=== PATIENT | male | born 2005 | race African-American/Black ===

== ENCOUNTER 2024-01-17 19:25 | Emergency (ER) | payer BC, SELFPAY ==
[2024-01-17 19:27] VITALS: BP 144/77; PULSE 99; RESP 20; TEMP 37.2; O2SAT 100
--- NOTE | 2024-01-17 22:39 | ED.SKABFB ---
HPI - Skin/Abscess/Foreign Bdy General Chief complaint: Skin/Abscess/Foreign Body Stated complaint: black head on my side that is causing pain Time Seen by Provider: 01/17/24 20:44 Source: patient Mode of arrival: ambulatory Limitations: no limitations History of Present Illness HPI narrative: This is a 18-year-old male, with no significant past medical history, presents to the emergency department complaining of a painful lesion the posterior aspect of his right leg. The patient states he had appeared to be a blackhead that developed approximately 1 week ago has gradually grown in size and become more painful. He states he has attempted to self treat with hot compresses without improvement. He has no other complaints at this time Related Data Allergies Allergy/AdvReac Type Severity Reaction Status Date / Time No Known Allergies Allergy Verified 01/17/24 23:03 Review of Systems Review of Systems: All systems reviewed & are unremarkable except as noted in HPI and below PMFSH Past Medical History Medical History No significant past medical history Surgical History Surgical History No significant past surgical history Social History Social History Smoking status: Never smoker Alcohol intake: current Substance use: never Exam Narrative: GENERAL: Well-developed, well-nourished, and in no acute distress. HEAD: Normocephalic, atraumatic. EYES: PERRLA and EOMI. CHEST: Clear to auscultation. No respiratory distress. No wheezes rales or rhonchi HEART: Regular rate and rhythm. No murmur heard. Normal peripheral pulses. EXTREMITIES: there is a tender fluctuant mass at the posterior aspect of the right distal 3rd thigh measuring approximately 7 cm in diameter with overlying erythema and induration. Normal range of motion of all extremities. No edema. SKIN: Warm, dry, no rash. NEURO: Alert and oriented x3. No focal deficit. Moving all 4 limbs spontaneously PSYCH: Normal mood and affect. Course Course Emergency Course: 22:40 - Incision drainage performed upon the patient's right leg with abscess and what appears to be a cystic mass removed. Patient tolerated procedure well. Please see procedure note. Will discharge with oral antibiotics and recommendation for primary care follow-up. I discussed the findings and recommendations with The patient. Discussed return and emergency precautions including signs/symptoms of septic arthritis and neurovascular compromise. The patient voiced understanding and agreement with the plan. All questions answered to his satisfaction. Vital Signs Vital signs: Vital Signs Temperature 99.0 F 01/17/24 19:27 Pulse Rate 99 01/17/24 19:27 Respiratory Rate 20 01/17/24 19:27 Blood Pressure 144/77 H 01/17/24 19:27 Pulse Oximetry 100 01/17/24 19:27 Oxygen Delivery Room Air 01/17/24 19:27 Temperature 98.6 F 01/17/24 23:02 Pulse Rate 69 01/17/24 23:02 Respiratory Rate 14 01/17/24 23:02 Blood Pressure 142/86 H 01/17/24 23:02 Pulse Oximetry 97 01/17/24 23:02 Oxygen Delivery Room Air 01/17/24 19:27 Procedures Abscess I/D lower extremity: Date of Incision: 01/17/24 Time of Incision: 22:29 Side (if applicable): right Local Anesthetic: lidocaine 1% and with epi Amount of anesthesia used (mL): 15 Technique: incised with #11 blade Amount of fluid expressed (mL): 5 Irrigation: Yes Packing used?: iodoform I&D Results: Pus, Blood and Other (Cyst) Complications: other (None) MDM - Skin/Abscess/Foreign Bdy MDM Narrative Medical decision making narrative: Plan: Pain control, incision and drainage, reassess Differential Diagnosis Differential diagnosis: Likely abscess of skin or subcutaneous tissue, cellulitis and other ( cyst, other) Discharge Plan Discharge Clinical Impression: Abscess of skin or subcutaneous tissue Patient Disposition: Home, Self-Care Condition: Stable Instructions: Antibiotic Form, Abscess (ED) Additional Instructions: You were seen in the emergency department. An abscess and associated cyst was drained from the right leg. I recommend a course of antibiotics and follow-up with your primary care doctor in 3-5 days. If you develop fevers with severe rapidly spreading redness, the leg appears blue/cold, or if you have other emergent concerns for life, limb, or eyesight, return to the emergency department. Patient Language: Uz[place] Prescriptions: New sulfamethoxazole-trimethoprim [Bactrim DS] 800-160 mg tablet 1 tablet PO Q12H 7 Days Qty: 14 0RF Follow-up/Referrals: UNKNOWN,DOCTOR [Primary Care Provider] - 3 Days Stand Alone Forms: Work/School Release IP Time of Disposition: 22:42
[2024-01-17 23:02] VITALS: BP 142/86; PULSE 69; RESP 14; TEMP 37; O2SAT 97
== END 2024-01-17 23:04 | disposition home or self-care (01) ==
PROVIDERS: Emergency Provider Preventive Medicine Aerospace Medicine
DX: L02.415 Cutaneous abscess of right lower limb (principal)
CPT/HCPCS: 10061; 99283